=== PATIENT | male | born 1945 ===

== ENCOUNTER 2016-06-22 06:59 | Emergency (ER) | payer MEDICARE, OTHER ==
--- NOTE | ~2016-06-22 | ER ---
PATIENT'S NAME: ISHA GARRETT [facility] AGE: 70 Y [address] ROOM: [place] [address] LOCATION: [facility] ADMIT DATE: 06/22/2016 ER/Outpatient Report DISCHARGE DATE: 06/22/2016 FAMILY PHYSICIAN: Donavan Kurtz MD ATTENDING PHYSICIAN: Ligia Arthur Time of Arrival: 0659. Time Seen: 0710. IDENTIFICATION: 70-year-old male. CHIEF COMPLAINT: Right great toe pain. HISTORY OF PRESENT ILLNESS: The patient is a 70-year-old male, who played a round of golf and thinks that, that exacerbated his right great toe pain yesterday. Despite elevation, he has persistent pain. He did have thumb redness, no redness at this time. No fever or chills. He has been diagnosed by Dr. Hdz with pseudogout and indeed in April, had synovial fluid which was negative on culture. 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 He also had an x-ray in 2012 of the right great toes showing an old healed oblique fracture through the midportion of the proximal phalanx of the great toe. The patient has taken nothing for the pain as he was told not to take non-steroidals as he is on a trial with Brilinta and aspirin after a stent just greater over one month ago. ALLERGIES: NO KNOWN DRUG ALLERGIES. CURRENT MEDICATIONS: 1. Brilinta. 2. Aspirin. 3. Lipitor. 4. Lisinopril. 5. Hydrochlorothiazide. 6. Atenolol. 7. Omeprazole. MEDICAL PROBLEMS: Hypertension, gastroesophageal reflux disease, coronary artery disease status post stent greater than one month ago. 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 Dr. Kurtz is PATIENT'S NAME: ISHA GARRETT [facility] AGE: 70 Y [address] ROOM: [place] [address] LOCATION: [facility] ADMIT DATE: 06/22/2016 ER/Outpatient Report DISCHARGE DATE: 06/22/2016 FAMILY PHYSICIAN: Donavan Kurtz MD ATTENDING PHYSICIAN: Ligia Arthur his primary care physician. He is . Tobacco use, denies. Alcohol use, denies. Drug use, denies. REVIEW OF SYSTEMS: All systems reviewed and negative other than what is noted in the HPI. PHYSICAL EXAMINATION: VITAL SIGNS: Height 6 feet, weight 95.1 kilos. Blood pressure 175/84, pulse 71, respirations 20, temperature 96.9, sats 97% on room air. GENERAL: A 70-year-old male, in no acute distress. MUSCULOSKELETAL: Right lower extremity neurovascularly intact. Decreased range of motion secondary to an old injury. He is tender to palpation over the medial aspect of the right distal phalanx. Minimal erythema. After discussion with the patient, he does not want to take antiinflammatories with a study that he is in. He can take Tylenol for pain but would like to get started on some steroids. He had a steroid injection to this toe before and he is not interested in a steroid injection today and he is talking with Dr. Kurtz about maybe starting on some colchicine. IMPRESSION: Pseudogout. PLAN: Elevate, weight bear as tolerated. Tylenol for pain. Prednisone 20 mg b.i.d. for 5 days. Follow up tomorrow sooner if increase in pain, redness, fever, or problems with Dr. Kurtz or Dr. Hdz. The patient understands and agrees and all questions have been answered at this time. LIGIA ARTHUR MD CAR/lolisl /[id number] d: 06/22/162207 t: 06/27/16 0756, OUTPATIENT REPORT
== END 2016-06-22 07:26 | disposition disaster alternative care site (69) ==
LOC: GMED 06:59
DX: M11.20 Other chondrocalcinosis, unspecified site (principal); I10 Essential (primary) hypertension; K21.9 Gastro-esophageal reflux disease without esophagitis; Z79.82 Long term (current) use of aspirin; Z79.899 Other long term (current) drug therapy

== ENCOUNTER → 2016-09-03 | Outpatient (CLI) | payer MEDICARE, OTHER | END | disposition disaster alternative care site (69) | LOC: GRAD 09:12 | DX: R74.0 Nonspecific elevation of levels of transaminase and lactic acid dehydrogenase [LDH] (principal); K76.0 Fatty (change of) liver, not elsewhere classified ==